=== PATIENT | male | born 1980 | race American Indian/Alaskan Native ===

== ENCOUNTER 2017-06-06 15:13 | Emergency (ER) | payer BC ==
[2017-06-06] MEDS ORDERED: Sodium Chloride 0.9% 1,000 ML IV STA (16:05)
[2017-06-06] MEDS ORDERED: DiphenhydrAMINE 50 mg/ml Inj IVP STA (16:06)
--- NOTE | 2017-06-06 16:11 | ED PDOC ---
Arrival/HPI - General Chief Complaint: Headache Time Seen by Provider: 06/06/17 15:50 - History of Present Illness Narrative History of Present Illness (Text): 06/06/17 16:09 37 yo male, presents with jenkins x 1 week. also reports "faces look blurry". when asked further, pt only reports that his vision is normal and he has only sees certain faces that look abnormal. no drinking drug use, no h/santiago migraine. Past Medical History - Infectious Disease Hx of Infectious Diseases: None - Psychiatric Hx Substance Use: No - Anesthesia Hx Anesthesia: No Family/Social History - Physician Review Nursing Documentation Reviewed: Yes Family/Social History: Unknown Family HX Smoking Status: Never Smoked Hx Alcohol Use: No Hx Substance Use: No Allergies/Home Meds Allergies/Adverse Reactions: Allergies No Known Allergies Allergy (Verified 06/06/17 15:36) Review of Systems - Review of Systems Constitutional: Normal Eyes: Normal ENT: Normal Respiratory: Normal Cardiovascular: Normal Gastrointestinal: Normal Genitourinary Male: Normal Musculoskeletal: Normal Skin: Normal Neurological: Headache Endocrine: Normal Hemo/Lymphatic: Normal Psychiatric: Normal Physical Exam Vital Signs Temp Pulse Resp BP Pulse Ox 06/07/17 02:00 97.8 F 80 16 112/82 100 06/07/17 00:00 97.7 F 78 16 110/68 98 06/06/17 22:00 97.8 F 80 16 138/70 100 06/06/17 20:00 97.8 F 78 18 130/79 100 06/06/17 18:48 79 18 145/86 98 06/06/17 15:36 97.7 F 81 16 146/92 H 98 Temperature: Afebrile Blood Pressure: Normal Pulse: Regular Respiratory Rate: Normal Appearance: Positive for: Well-Appearing, Non-Toxic, Comfortable Pain Distress: None Mental Status: Positive for: Alert and Oriented X 3 - Systems Exam Head: Present: Atraumatic, Normocephalic Pupils: Present: PERRL Extroacular Muscles: Present: EOMI Conjunctiva: Present: Normal Mouth: Present: Moist Mucous Membranes Neck: Present: Normal Range of Motion Respiratory/Chest: Present: Clear to Auscultation, Good Air Exchange. No: Respiratory Distress, Accessory Muscle Use Cardiovascular: Present: Regular Rate and Rhythm, Normal S1, S2. No: Murmurs Abdomen: Present: Normal Bowel Sounds. No: Tenderness, Distention, Peritoneal Signs Back: Present: Normal Inspection Upper Extremity: Present: Normal Inspection. No: Cyanosis, Edema Lower Extremity: Present: Normal Inspection. No: Edema Neurological: Present: GCS=15, CN II-XII Intact, Speech Normal, Motor Func Grossly Intact, Normal Sensory Function. No: Normal Cerebellar Funct Skin: Present: Warm, Dry, Normal Color. No: Rashes Psychiatric: Present: Alert, Oriented x 3, Normal Insight, Normal Concentration Medical Decision Making ED Course and Treatment: 06/06/17 18:49 suspect atypical migraine- labs imaging pending case discussed with neuro dr roldan. recommends depakote, decadmana kleinfrjakub. pt reports jenkins improving. imaging pending. 06/10/17 07:09 endorsed to mini shifter pending reassessment imaging final dispo - Lab Interpretations Lab Results: 06/06/17 16:30 06/06/17 16:30 Lab Results 06/06/17 16:30: Sodium 142, Potassium 4.1, Chloride 103, Carbon Dioxide 29, Anion Gap 14, BUN 13, Creatinine 1.1, Est GFR ( Amer) > 60, Est GFR (Non- Af Amer) > 60, Random Glucose 90, Calcium 10.0, Total Bilirubin 0.5, AST 36, ALT 41, Alkaline Phosphatase 68, Total Creatine Kinase 126, Total Protein 8.2, Albumin 4.4, Globulin 3.9, Albumin/Globulin Ratio 1.1 06/06/17 16:30: PT 11.4, INR 1.00, APTT 31.6 06/06/17 16:30: WBC 6.6, RBC 4.65, Hgb 13.1 L, Hct 39.1 L, MCV 84.1, MCH 28.2, MCHC 33.5, RDW 13.0, Plt Count 224, MPV 9.2, Gran % 49.1 L, Lymph % (Auto) 43.2 H, [place] % (Auto) 5.5, Eos % (Auto) 1.7, Baso % (Auto) 0.5, Gran # 3.22, Lymph # (Auto) 2.8, [place] # (Auto) 0.4, Eos # (Auto) 0.1, Baso # (Auto) 0.03 06/06/17 16:30: Urine Opiates Screen Negative, Urine Methadone Screen Negative, Ur Barbiturates Screen Negative, Ur Phencyclidine Scrn Negative, Ur Amphetamines Screen Negative, U Benzodiazepines Scrn Negative, U Oth Cocaine Metabols Negative, U Cannabinoids Screen Negative - RAD Interpretation Radiology Orders: 06/06/17 16:05 HEAD W/O CONTRAST [CT] Stat - Medication Orders Current Medication Orders: Discontinued Medications Dexamethasone (Decadron Inj) 2 mg IVP STAT STA Stop: 06/06/17 18:08 Last Admin: 06/06/17 18:38 Dose: 2 mg IVP Administration Document 06/06/17 18:38 OCS (Rec: 06/06/17 18:39 OCS [id number]) Charges for Administration # of IVP Administrations 1 Diphenhydramine HCl (Benadryl) 25 mg IVP STAT STA Stop: 06/06/17 16:07 Last Admin: 06/06/17 16:20 Dose: 25 mg IVP Administration Document 06/06/17 16:20 OCS (Rec: 06/06/17 16:20 OCS [id number]) Charges for Administration # of IVP Administrations 1 Sodium Chloride (Sodium Chloride 0.9%) 1,000 mls @ 999 mls/hr IV .Q1H1M STA Stop: 06/06/17 17:05 Last Admin: 06/06/17 16:19 Dose: 999 mls/hr eMAR Start Stop Document 06/06/17 16:19 OCS (Rec: 06/06/17 16:19 OCS [id number]) Intravenous Solution Start Date 06/06/17 Start Time 16:19 End Date 06/06/17 End time 17:20 Total Infusion Time 61 Valproate Sodium 500 mg/ (Sodium Chloride) 105 mls @ 100 mls/hr IVPB STAT STA Stop: 06/06/17 19:07 Last Admin: 06/06/17 18:45 Dose: 100 mls/hr eMAR Start Stop Document 06/06/17 18:45 OCS (Rec: 06/06/17 18:46 OCS [id number]) Intravenous Solution Start Date 06/06/17 Start Time 18:46 Metoclopramide HCl (Reglan) 10 mg IVP STAT STA Stop: 06/06/17 16:07 Last Admin: 06/06/17 16:19 Dose: 10 mg IVP Administration Document 06/06/17 16:19 OCS (Rec: 06/06/17 16:19 OCS [id number]) Charges for Administration # of IVP Administrations 1 Ondansetron HCl (Zofran Inj) 4 mg IVP STAT STA Stop: 06/06/17 18:08 Last Admin: 06/06/17 18:39 Dose: 4 mg IVP Administration Document 06/06/17 18:39 OCS (Rec: 06/06/17 18:39 OCS [id number]) Charges for Administration # of IVP Administrations 1 Disposition/Present on Arrival - Present on Arrival Any Indicators Present on Arrival: No History of DVT/PE: No History of Uncontrolled Diabetes: No Urinary Catheter: No History of Decub. Ulcer: No History Surgical Site Infection Following: None - Disposition Have Diagnosis and Disposition been Completed?: Yes Diagnosis: Atypical migraine Disposition: HOME/ ROUTINE Disposition Time: 07:00 Condition: STABLE Discharge Instructions (ExitCare): Migraine Headache (DC) Additional Instructions: Take meds as prescribed/follow up with the neurologist tomorrow. Prescriptions: Acetaminophen/Butalbital/Caf [Fioricet] 1 tab PO Q6 PRN #16 tab PRN Reason: Headache Referrals: Damian Roldan MD [Staff Provider] - Follow up with primary Forms: [employer] (Tunisian)
[2017-06-06 16:49] LABS: BASO # 0.03 K/mm3 (0.0-2.0); BASO % 0.5 % (0.0-3.0); EOS # 0.1 (0.0-0.7); EOS % 1.7 % (1.5-5.0); GRAN # 3.22 (1.4-6.5); GRAN % 49.1 % (50.0-68.0); HEMOGLOBIN 13.1 g/dL (14.0-18.0); LYMPH # 2.8 (1.2-3.4); LYMPH % 43.2 % (22.0-35.0); MEAN CELL VOLUME 84.1 fl (80.0-105.0); MEAN CORPUSCULAR HEMOGLOBIN 28.2 pg (25.0-35.0); MEAN CORPUSCULAR HGB CONC 33.5 g/dl (31.0-37.0); MEAN PLATELET VOLUME 9.2 fl (7.0-11.0); MONO # 0.4 (0.1-0.6); MONO % 5.5 % (1.0-6.0); RBC 4.65 10^6/uL (3.5-6.1); WHITE BLOOD COUNT 6.6 10^3/ul (4.5-11.0)
[2017-06-06 17:00] LABS: ALB/GLOB RATIO 1.1 (1.1-1.8); ALBUMIN 4.4 g/dL (3.0-4.8); ALT/SGPT 41 U/L (7-56); AST/SGOT 36 U/L (17-59); BLOOD UREA NITROGEN 13 mg/dL (7-21); GFR AFRICAN-AMERICAN > 60; GFR NON-AFRICAN AMERICAN > 60
[2017-06-06 17:03] LABS: PARTIAL THROMBOPLASTIN TIME 31.6 Seconds (25.1-36.5); PROTHROMBIN TIME 11.4 SECONDS (9.4-12.5)
[2017-06-06 17:35] LABS: BARBITURATES, UR NEGATIVE (NEGATIVE); BENZODIAZEPINES, UR NEGATIVE (NEGATIVE); OPIATES, UR NEGATIVE (NEGATIVE); PHENCYCLIDINE, UR NEGATIVE (NEGATIVE)
[2017-06-06] MEDS ORDERED: Valproate 500 MG in Sodium Chloride 0.9% 100 ML IVPB STA (18:05)
[2017-06-06] MEDS ORDERED: Dexamethasone 4 mg/1 ml IVP STA (18:07)
[2017-06-06 21:20] VITALS: TEMP 97.8; O2SAT 100
[2017-06-06 23:33] VITALS: PULSE 80; RESP 16
--- NOTE | 2017-06-07 02:00 | CT ---
EXAM: CT Head Without Intravenous Contrast EXAM DATE/TIME: 06/06/2017 4:05 PM CLINICAL HISTORY: The patient age is 37 years old and is male; Pain; Headache; Additional info: [facility] Facility exam id and description: Ct heads head w/o contrast TECHNIQUE: Axial computed tomography images of the head/brain without intravenous contrast. All CT scans at this facility use one or more dose reduction techniques, viz.: automated exposure control; ma/kV adjustment per patient size (including targeted exams where dose is matched to indication; i.e. head); or iterative reconstruction technique. Coronal and sagittal reformatted images were created and reviewed. COMPARISON: No relevant prior studies available. FINDINGS: Brain: Multiple extra-axial calcifications are visualized, with involvement of the falx. The white-miller differentiation is preserved demonstrating no acute territorial type infarct. No acute intracranial hemorrhage is seen. Midline shift: There is no midline shift. Ventricles: No ventriculomegaly. Bones/joints: The calvarium demonstrates no evidence for a depressed fracture. Soft tissues: No acute abnormality. Sinuses: Mucous retention cysts or polyps are visualized within the bilateral maxillary sinuses, with mild mucosal thickening of the left maxillary sinus. Mastoid air cells: No mastoid effusion. IMPRESSION: 1. No acute intracranial abnormality. 2. Paranasal sinus disease is noted above.
--- NOTE | 2017-06-07 02:11 | ED PDOC ---
Physical Exam Vital Signs Temp Pulse Resp BP Pulse Ox 06/06/17 22:00 97.8 F 80 16 138/70 100 06/06/17 20:00 97.8 F 78 18 130/79 100 06/06/17 18:48 79 18 145/86 98 06/06/17 15:36 97.7 F 81 16 146/92 H 98 Medical Decision Making ED Course and Treatment: 06/07/17 19:10 Endorsed to me by Dr. Green. Pending CT Head study. Patient with history of headache, associated with visual disturbances, namely distorted images. Dr. Green discussed case earlier with Dr. Roldan, whom believes symptoms to be secondary to Atypical migraine. Patient is currently resting comfortably. 06/07/2017 02:05 CT Head completed result is noted. Patient reevaluated, states he feels fine. Vision has much improved. Patient is instructed to follow-up with neurologist, Dr. Roldan, as per his instructions. - Lab Interpretations Lab Results: 06/06/17 16:30 06/06/17 16:30 Lab Results 06/06/17 16:30: Sodium 142, Potassium 4.1, Chloride 103, Carbon Dioxide 29, Anion Gap 14, BUN 13, Creatinine 1.1, Est GFR ( Amer) > 60, Est GFR (Non- Af Amer) > 60, Random Glucose 90, Calcium 10.0, Total Bilirubin 0.5, AST 36, ALT 41, Alkaline Phosphatase 68, Total Creatine Kinase 126, Total Protein 8.2, Albumin 4.4, Globulin 3.9, Albumin/Globulin Ratio 1.1 06/06/17 16:30: PT 11.4, INR 1.00, APTT 31.6 06/06/17 16:30: WBC 6.6, RBC 4.65, Hgb 13.1 L, Hct 39.1 L, MCV 84.1, MCH 28.2, MCHC 33.5, RDW 13.0, Plt Count 224, MPV 9.2, Gran % 49.1 L, Lymph % (Auto) 43.2 H, [place] % (Auto) 5.5, Eos % (Auto) 1.7, Baso % (Auto) 0.5, Gran # 3.22, Lymph # (Auto) 2.8, [place] # (Auto) 0.4, Eos # (Auto) 0.1, Baso # (Auto) 0.03 06/06/17 16:30: Urine Opiates Screen Negative, Urine Methadone Screen Negative, Ur Barbiturates Screen Negative, Ur Phencyclidine Scrn Negative, Ur Amphetamines Screen Negative, U Benzodiazepines Scrn Negative, U Oth Cocaine Metabols Negative, U Cannabinoids Screen Negative - RAD Interpretation Radiology Orders: 06/06/17 16:05 HEAD W/O CONTRAST [CT] Stat - Medication Orders Current Medication Orders: Discontinued Medications Dexamethasone (Decadron Inj) 2 mg IVP STAT STA Stop: 06/06/17 18:08 Last Admin: 06/06/17 18:38 Dose: 2 mg IVP Administration Document 06/06/17 18:38 OCS (Rec: 06/06/17 18:39 OCS [id number]) Charges for Administration # of IVP Administrations 1 Diphenhydramine HCl (Benadryl) 25 mg IVP STAT STA Stop: 06/06/17 16:07 Last Admin: 06/06/17 16:20 Dose: 25 mg IVP Administration Document 06/06/17 16:20 OCS (Rec: 06/06/17 16:20 OCS [id number]) Charges for Administration # of IVP Administrations 1 Sodium Chloride (Sodium Chloride 0.9%) 1,000 mls @ 999 mls/hr IV .Q1H1M STA Stop: 06/06/17 17:05 Last Admin: 06/06/17 16:19 Dose: 999 mls/hr eMAR Start Stop Document 06/06/17 16:19 OCS (Rec: 06/06/17 16:19 OCS [id number]) Intravenous Solution Start Date 06/06/17 Start Time 16:19 End Date 06/06/17 End time 17:20 Total Infusion Time 61 Valproate Sodium 500 mg/ (Sodium Chloride) 105 mls @ 100 mls/hr IVPB STAT STA Stop: 06/06/17 19:07 Last Admin: 06/06/17 18:45 Dose: 100 mls/hr eMAR Start Stop Document 06/06/17 18:45 OCS (Rec: 06/06/17 18:46 OCS [id number]) Intravenous Solution Start Date 06/06/17 Start Time 18:46 Metoclopramide HCl (Reglan) 10 mg IVP STAT STA Stop: 06/06/17 16:07 Last Admin: 06/06/17 16:19 Dose: 10 mg IVP Administration Document 06/06/17 16:19 OCS (Rec: 06/06/17 16:19 OCS [id number]) Charges for Administration # of IVP Administrations 1 Ondansetron HCl (Zofran Inj) 4 mg IVP STAT STA Stop: 06/06/17 18:08 Last Admin: 06/06/17 18:39 Dose: 4 mg IVP Administration Document 06/06/17 18:39 OCS (Rec: 06/06/17 18:39 OCS [id number]) Charges for Administration # of IVP Administrations 1 Disposition/Present on Arrival - Present on Arrival Any Indicators Present on Arrival: No History of DVT/PE: No History of Uncontrolled Diabetes: No Urinary Catheter: No History of Decub. Ulcer: No History Surgical Site Infection Following: None - Disposition Have Diagnosis and Disposition been Completed?: Yes Diagnosis: Atypical migraine Disposition: HOME/ ROUTINE Disposition Time: 02:12 Patient Plan: Discharge Condition: GOOD Discharge Instructions (ExitCare): Migraine Headache (DC) Additional Instructions: Take meds as prescribed/follow up with the neurologist tomorrow. Prescriptions: Acetaminophen/Butalbital/Caf [Fioricet] 1 tab PO Q6 PRN #16 tab PRN Reason: Headache Referrals: Damian Roldan MD [Staff Provider] - Follow up with primary Forms: [employer] (Divehi)
[2017-06-07 02:24] VITALS: BP 112/82
== END 2017-06-07 02:24 | disposition home or self-care (01) ==
LOC: ED 15:13
DX: G43.009 Migraine without aura, not intractable, without status migrainosus (principal)
CPT/HCPCS: 70450; 80053; 82550; 85025; 85610; 85730; 96361; 96374; 96375; 99285; G0480; J1100; J1200; J2405; J2765; J7040